=== PATIENT | male | born 1985 | race African-American/Black ===

== ENCOUNTER 2019-12-17 21:33 | Emergency (ER) | payer SELFPAY ==
[~2019-12-17] VITALS: Ht 182.9 cm; Wt 72.6 kg
[2019-12-18 00:35] VITALS: BP 120/84
== END 2019-12-18 00:34 | disposition home or self-care (01) ==
LOC: EDBD 21:33 → ER 21:36
DX: S09.90XA Unspecified injury of head, initial encounter (principal); S33.5XXA Sprain of ligaments of lumbar spine, initial encounter; M54.2 Cervicalgia; Z88.0 Allergy status to penicillin; W19.XXXA Unspecified fall, initial encounter; Y93.89 Activity, other specified; Y92.85 Railroad track as the place of occurrence of the external cause; Y99.8 Other external cause status
CPT/HCPCS: 70450; 72125; 72131

== ENCOUNTER → 2021-09-17 | Emergency (ER) | payer OTHER ==
[~2021-09-17] VITALS: Ht 175.3 cm; Wt 63.5 kg
[2021-09-17 00:39] VITALS: BP 138/104
[2021-09-17 01:46] LABS: Urine Bacteria FEW /hpf (None Seen); Urine Blood Negative /uL (Negative); Urine Specific Gravity 1.012 (1.001-1.035); Urine Sperm PRESENT /hpf (None Seen); Urine WBC 1 /hpf (0 - 3)
[2021-09-17 01:49] LABS: Albumin 3.9 g/dL (3.4-5.0); Anion Gap 7 (5-15); BUN/Creatinine Ratio 9.1; Blood Urea Nitrogen 9 mg/dL (7-18); Calcium 8.7 mg/dL (8.5-10.1); Carbon Dioxide 26 mmol/L (21-32); Chloride 102 mmol/L (98-107); GFR African American 109 mL/min; GFR Non-African American 90 mL/min; Glucose 105 mg/dL (74-106); Potassium 3.8 mmol/L (3.5-5.1); Sodium 135 mmol/L (136-145)
[2021-09-17 01:52] LABS: Salicylate < 1.7 mg/dL (2.8-20.0)
[2021-09-17 01:53] LABS: Acetaminophen < 2.0 ug/mL (10-30); Alanine Aminotransferase 48 U/L (16-61); Alkaline Phosphatase 88 U/L (45-117); Aspartate Aminotransferase 99 U/L (15-37); Bilirubin, Total 0.4 mg/dL (0.2-1.0); Total Protein 8.6 g/dL (6.4-8.2)
[2021-09-17 01:54] LABS: Amphetamine Screen, Urine POSITIVE (NEGATIVE); Barbiturate Scree,Urine NEGATIVE (NEGATIVE); Benzodiazephine Screen, Urine NEGATIVE (NEGATIVE); Cannabinoid Screen, Urine NEGATIVE (NEGATIVE); Cocaine Screen, Urine NEGATIVE (NEGATIVE); Opiate Scree,Urine NEGATIVE (NEGATIVE); Phencyclidine Screen, Urine NEGATIVE (NEGATIVE)
[2021-09-17 01:59] LABS: Basophils # (auto) 0 10 ^3/uL (0-0.2); Basophils % (auto) 0.5 % (0.0-2.0); Eosinophils # (auto) 0 10 ^3/uL (0-0.8); Eosinophils % (auto) 0.1 % (0.0-7.0); Hematocrit 41.9 % (41.0-53.0); Hemoglobin 14.6 g/dL (13.5-17.5); Lymphocytes % (auto) 24.8 % (10.0-50.0); Mean Corpuscular Hemoglobin 29.7 pg (28.0-32.0); Mean Corpuscular Hgb Conc. 34.9 g/dL (32.0-36.0); Mean Corpuscular Volume 85.2 fL (80.0-100.0); Monocytes # (auto) 0.8 10 ^3/uL (0-1.3); Monocytes % (auto) 9.2 % (0.0-12.0); Neutrophils # (auto) 5.4 10 ^3/uL (1.6-8.6); Neutrophils % (auto) 65.4 % (37.0-80.0); Nucleated Red Blood Cells % 0.1 %; Red Blood Cells 4.92 10^6/uL (4.5-5.90); Red Cell Distribution Width 14.1 % (11.8-14.3); White Blood Cell 8.3 10^3/uL (4.4-10.8)
== END | disposition home or self-care (01) ==
LOC: ER 00:48
DX: R44.1 Visual hallucinations (principal); Z53.21 Procedure and treatment not carried out due to patient leaving prior to being seen by health care provider
CPT/HCPCS: 36415; 80053; 80307; 80320; 80329; 81001; 85025

== ENCOUNTER 2021-09-30 19:08 | Emergency (ER) | payer OTHER ==
[~2021-09-30] VITALS: Ht 175.3 cm; Wt 63.5 kg
[2021-09-30 20:32] LABS: Salicylate < 1.7 mg/dL (2.8-20.0)
[2021-09-30 21:02] LABS: Acetaminophen < 2.0 ug/mL (10-30)
[2021-10-01 07:35] LABS: Alcohol, Urine < 3.0 mg/dL (0-10); Amphetamine Screen, Urine POSITIVE (NEGATIVE); Barbiturate Scree,Urine NEGATIVE (NEGATIVE); Benzodiazephine Screen, Urine NEGATIVE (NEGATIVE); Cannabinoid Screen, Urine NEGATIVE (NEGATIVE); Cocaine Screen, Urine NEGATIVE (NEGATIVE); Opiate Scree,Urine NEGATIVE (NEGATIVE); Phencyclidine Screen, Urine NEGATIVE (NEGATIVE)
[2021-10-01] MEDS: OLANZapine 5 MG TAB PO SCH ×2 (14:00→22:00)
[2021-10-02] MEDS: OLANZapine 5 MG TAB PO SCH ×2 (03:10→22:00)
[2021-10-03] MEDS: OLANZapine 5 MG TAB PO SCH ×2 (10:37→22:02)
[2021-10-04] MEDS: OLANZapine 5 MG TAB PO SCH ×2 (10:37→21:48)
[2021-10-05] MEDS: OLANZapine 5 MG TAB PO SCH (10:00)
[2021-10-05 10:06] VITALS: BP 101/58
[2021-10-06] MEDS ORDERED: OLANZapine 5 MG TAB PO SCH (10:00)
== END 2021-10-05 11:48 | disposition still patient (30) ==
LOC: ER 19:09
DX: F22 Delusional disorders (principal); F29 Unspecified psychosis not due to a substance or known physiological condition; Z20.822 Contact with and (suspected) exposure to COVID-19
CPT/HCPCS: 36415; 80307; 80320; 80329; 87426